=== PATIENT | male | born 1960 | race Caucasian/White ===

== ENCOUNTER 2017-06-11 10:20 | Emergency (ER) | payer OTHER, BC ==
[2017-06-11 10:30] VITALS: BP 121/70; PULSE 62; TEMP 98.6; BMI 41.9
--- NOTE | 2017-06-11 10:34 | PDOC ---
History of Present Illness - General Chief Complaint: Back Pain Stated Complaint: RT SIDED BACK PAIN Time Seen by Provider: 06/11/17 10:24 History Source: Patient Exam Limitations: No Limitations - History of Present Illness Initial Comments: 06/11/17 10:49 56y M hx of CHF s/p defibrillator from prior lung infection (s/p thoracotomy) presents with R upper back pain that is worse with movements and alleaited by movements. The pt notes that he was playing golf yesterday and felt fine playing golf, the pain started at night. The pain is worse in his right upper back and radiates to the R flank. The pt states he had a similar pain a few months ago while playing golf, but he stopped playing and the pain improved gradually on its own. HE tried 400mg of tylenol this morning around 4am without significant improvement. The pt denies any numbness/tingling/weakness, urinary, bowel incontinence, fever /chills. The pt denies an sob, cough, cp, n/v,hematuria, dysuria. Past History - Past Medical History Allergies/Adverse Reactions: Allergies Allergy/AdvReac Type Severity Reaction Status Date / Time Penicillins Allergy Severe MOUTH Verified 06/11/17 10:25 SWELLING Home Medications: Ambulatory Orders Aspirin Coated [Ecotrin -] 325 mg PO DAILY 01/04/14 Carvedilol [Coreg] 12.5 mg PO BID 01/04/14 Cyclobenzaprine HCl [Flexeril 10 mg] 10 mg PO BID PRN #10 tablet 06/11/17 Anemia: No Asthma: No Cancer: No Cardiac Disorders: Yes (LOW EJECTION FRACTION RESULTING FROM LUNG INFECTION WHICH SPREAD TO HEART) CVA: No COPD: No CHF: No Dementia: No Diabetes: Yes GI Disorders: No Disorders: No HTN: No Hypercholesterolemia: No Liver Disease: No Seizures: No Thyroid Disease: No - Surgical History Abdominal Surgery: No Appendectomy: No Cardiac Surgery: Yes (PACEMAKER INSERTED 2009) Cholecystectomy: No Lung Surgery: Yes (LUNG RESECTION FOR INFECTION-2008) Neurologic Surgery: No Orthopedic Surgery: Yes (R KNEE ARTHROSCOPY-2003) - Psycho/Social/Smoking Cessation Hx Anxiety: No Suicidal Ideation: No Smoking History: Former smoker Have you smoked in the past 12 months: No Number of Cigarettes Smoked Daily: 20 If you are a former smoker, when did you quit?: 35 YRS AGO Information on smoking cessation initiated: No Hx Alcohol Use: No Drug/Substance Use Hx: No Substance Use Type: Alcohol Hx Substance Use Treatment: No Review of Systems - Review of Systems Able to Perform ROS?: Yes Comments:: 06/11/17 10:54 Constitutional - no reported Fever, Chills, HEENT: no reported vision changes, sore throat Respiratory: no reported cough, sob, hemoptysis Cardiac: no reported chest pain, palpitations, light headedness, leg swelling Abd/GI: no reported abd pain, nausea, vomiting, blood per rectum, melena, diarrhea : no reported dysuria, frequency, discharge Musculskelatal - +back pain, no reported joint swelling skin - no reported bruising, erythema, rash neurological: no reported headache, numbness, focal weakness, tingling, ataxia, hematologic: no reported anemia, easy bruising, easy bleeding *Physical Exam - Vital Signs Last Vital Signs Temp Pulse Resp BP Pulse Ox 98.6 F 62 18 121/70 99 06/11/17 10:20 06/11/17 10:20 06/11/17 10:20 06/11/17 10:20 06/11/17 10:20 - Physical Exam Comments: 06/11/17 10:55 GENERAL: The patient is awake, alert, and fully oriented, Nontoxic - in no acute distress. HEAD: Normocephalic, atraumatic. EYES: extraocular movements intact, sclera anicteric, conjunctiva clear. ENT: Normal voice, Moist mucous membranes. NECK: Normal range of motion, supple ABDOMEN: Soft, nontender, normoactive bowel sounds. No guarding, no rebound. . No CVA tenderness EXTREMITIES: Normal range of motion, no edema. NEUROLOGICAL: No facial assymetry, Normal speech, antalgic gait BACK: focal soft tissue tenderness in mid thorax (just inferior to R scapula), no rashes, +thoractomy stcar present on R flank/back. PSYCH: Normal mood, normal affect. SKIN: Warm, Dry, normal turgor, Medical Decision Making - Medical Decision Making 06/11/17 10:56 suspect MSK pain no red flags for cord compression will ck UA to screen for hematuria that would be suggestive of kidney stone toradol IM will give flexeril for home heat/rest 06/11/17 11:54 UA neg pt feeling improved pt is getting a ride home w/ daugther will dc the pt with pmd fu return precautions were discussed I discussed the physical exam findings, ancillary test results and final diagnoses with the patient. I answered all of the patient's questions. The patient was satisfied with the care received and felt comfortable with the discharge plan and treatment plan. The patient will call their primary care physician within 24 hours to arrange follow-up and will return to the Emergency Department with any new, persistent or worsening symptoms. *DC/Admit/Observation/Transfer Diagnosis at time of Disposition: Upper back strain Qualifiers: Encounter type: initial encounter Qualified Code(s): S29.012A - Strain of muscle and tendon of back wall of thorax, initial encounter - Discharge Dispostion Disposition: HOME Condition at time of disposition: Improved Admit: No - Prescriptions Prescriptions: Cyclobenzaprine HCl [Flexeril 10 mg] 10 mg PO BID PRN #10 tablet PRN Reason: Back Pain - Referrals Referrals: [facility] [Provider Group] - Patient Instructions Printed Discharge Instructions: DI for Thoracic Back Pain Additional Instructions: Return to the emergency department immediately with ANY new, persistent or worsening symptoms including numbness, tingling, weakness, fevers or any other concerns. Take ibuprofen (600mg)/tylenol(650mg) every 6 hours for 2 days. Take the flexeril if you still have pain/discomfort. Apply heat to your sore muscles. Rest and avoid any strenous activities for 3 days. You MUST call and follow up with your doctor in 3-4 days for further evaluation of your symptoms. Your emergency department visit is not complete without a followup with your doctor for reevaluation.. Results were discussed with you. Please make sure your doctor reviews the results of your emergency evaluation.
[2017-06-11] MEDS ORDERED: KETOROLAC TROMETHAMINE 60 MG/2 ML VIAL IM ONE (10:36)
[2017-06-11] MEDS ORDERED: KETOROLAC TROMETHAMINE 60 MG/2 ML VIAL ONE (10:46)
[2017-06-11 11:15] LABS: PH,URINE 5.5 (4.5-8); URINE APPEARANCE Clear; URINE BILIRUBIN Negative (NEGATIVE); URINE BLOOD Negative (NEGATIVE); URINE GLUCOSE (UA) Negative (NEGATIVE); URINE KETONE Negative (NEGATIVE); URINE LEUK ESTERASE Negative (NEGATIVE); URINE NITRITE Negative (NEGATIVE); URINE PROTEIN Negative (NEGATIVE); URINE UROBILINOGEN 0.2 (0.2-1.0)
[2017-06-11 11:21] LABS: URINE COLOR YELLOW
[2017-06-11] MEDS ORDERED: diazePAM 2 MG TABLET PO ONE (11:25)
[2017-06-11] MEDS ORDERED: diazePAM 2 MG TABLET ONE (11:31)
== END 2017-06-11 12:00 | disposition home or self-care (01) ==
LOC: FER 10:20
PROC: 3E0233Z Introduction of Anti-inflammatory into Muscle, Percutaneous Approach (ICD-10-PCS; principal; 2017-06-11)
DX: S29.012A Strain of muscle and tendon of back wall of thorax, initial encounter (principal); X58.XXXA Exposure to other specified factors, initial encounter; Y93.89 Activity, other specified; Y92.9 Unspecified place or not applicable; Z87.891 Personal history of nicotine dependence; Z95.810 Presence of automatic (implantable) cardiac defibrillator; E11.9 Type 2 diabetes mellitus without complications; I51.9 Heart disease, unspecified
CPT/HCPCS: 81003; 99283-25